=== PATIENT | male | born 1980 | race Caucasian/White ===

== ENCOUNTER 2021-05-18 17:52 | Inpatient (IN) | payer OTHER ==
[2021-05-18] MEDS ORDERED: LOPERAMIDE HCL 2 MG CAPSULE PO PRN (20:22)
[2021-05-18] MEDS ORDERED: ONDANSETRON *ODT* 4 MG TABLET SL PRN (20:22)
[2021-05-18] MEDS ORDERED: MAGNESIUM HYDROX 2400MG/30ML ORAL SUSPENSION 30 ML CUP PO PRN (20:22)
[2021-05-18] MEDS ORDERED: IBUPROFEN 400 MG TABLET (FP) PO PRN (20:22)
[2021-05-18] MEDS ORDERED: NICOTINE POLACRILEX 2 MG GUM BUC PRN (20:22)
[2021-05-18] MEDS ORDERED: MAG HYDROX/AL HYDROX/SIMETH 30 ML UNIT-DOSE CUP PO PRN (20:22)
[2021-05-18] MEDS ORDERED: BISMUTH SUBSALICYLATE 524 MG/30 ML PO PRN (20:22)
[2021-05-18] MEDS ORDERED: MENTHOL/PHENOL 1 EACH UD MM PRN (20:22)
[2021-05-18] MEDS ORDERED: MAGNESIUM CITRATE 300 ML BOTTLE PO PRN (20:22)
[2021-05-18] MEDS ORDERED: ACETAMINOPHEN 325 MG TABLET (FP) PO PRN ×2 (20:22)
[2021-05-18] MEDS ORDERED: methaDONE HCL 10 MG TABLET (FOR DETOX USE ONLY) PO ONE (20:28)
[2021-05-18] MEDS ORDERED: methaDONE HCL 10 MG TABLET (FOR DETOX USE ONLY) ONE (21:20)
[2021-05-18] MEDS ORDERED: hydrOXYzine PAMOATE 25 MG CAPSULE (FP) PO ONE ×2 (21:33→21:36)
[2021-05-18] MEDS ORDERED: MELATONIN 5 MG TABLETS PO SCH (22:00)
[2021-05-18 22:03] VITALS: BMI 28.8
[2021-05-19] MEDS ORDERED: METHOCARBAMOL 500 MG TABLET ONE (00:05)
[2021-05-19] MEDS: METHOCARBAMOL 500 MG TABLET PO PRN ×3 (00:08→17:54)
[2021-05-19] MEDS: THIAMINE HCL 100 MG TABLET (FP) PO SCH ×2 (00:09→21:30)
[2021-05-19] MEDS ORDERED: methaDONE HCL 10 MG TABLET (FOR DETOX USE ONLY) ONE (08:52)
[2021-05-19] MEDS: PRENATAL VITAMINS W/ FOLIC ACID TABLET (FP) PO SCH (09:34)
[2021-05-19] MEDS: NICOTINE 14 MG/24 HOURS TOPICAL PATCH TD SCH (09:34)
[2021-05-19] MEDS: cloNIDine HCL 0.1 MG TABLET PO PRN ×2 (09:34→17:53)
[2021-05-19 10:24] LABS: HEMATOCRIT 40.5 % (35.4-49); HEMOGLOBIN 13.6 GM/dL (11.7-16.9); MCH 30.5 pg (25.7-33.7); MCHC 33.7 g/dl (32.0-35.9); MEAN CELL VOLUME 90.7 fl (80-96); MEAN PLT VOLUME 7.7 fl (7.5-11.1); PLATELET COUNT 278 10^3/uL (134-434); RBC 4.46 M/mm3 (4.00-5.60); RDW 12.4 % (11.9-15.9); WHITE BLOOD COUNT 8.9 K/mm3 (4.0-10.0)
[2021-05-19 10:28] LABS: ALBUMIN 3.8 g/dl (3.4-5.0); CALCIUM 8.8 mg/dL (8.5-10.1)
[2021-05-19 10:29] LABS: CREATININE 1.2 mg/dL (0.55-1.3)
[2021-05-19 10:30] LABS: BILIRUBIN,TOTAL 0.6 mg/dL (0.2-1); TOT PROT 7.4 g/dl (6.4-8.2)
[2021-05-19] MEDS ORDERED: QUEtiapine FUMARATE 50 MG TABLET PO SCH (22:00)
[2021-05-20] MEDS: METHOCARBAMOL 500 MG TABLET PO PRN ×3 (01:11→18:00)
[2021-05-20 08:08] LABS: SARS-CoV-2 NAA Not Detected (Not Detected)
[2021-05-20 08:08] LABS: SARS-CoV-2 NAA Not Detected (Not Detected)
[2021-05-20] MEDS: NICOTINE 14 MG/24 HOURS TOPICAL PATCH TD SCH (09:06)
[2021-05-20] MEDS: PRENATAL VITAMINS W/ FOLIC ACID TABLET (FP) PO SCH (09:06)
[2021-05-20] MEDS ORDERED: methaDONE HCL 10 MG TABLET (FOR DETOX USE ONLY) PO ONE (10:00)
[2021-05-20] MEDS: cloNIDine HCL 0.1 MG TABLET PO PRN (12:04)
[2021-05-20] MEDS: THIAMINE HCL 100 MG TABLET (FP) PO SCH (21:06)
[2021-05-20] MEDS ORDERED: QUEtiapine FUMARATE 50 MG TABLET PO SCH ×2 (22:00)
[2021-05-20] MEDS ORDERED: MELATONIN 5 MG TABLETS PO SCH (22:00)
[2021-05-21] MEDS: METHOCARBAMOL 500 MG TABLET PO PRN (06:10)
[2021-05-21 09:20] VITALS: BP 113/77; PULSE 74; TEMP 96.9
[2021-05-21] MEDS ORDERED: methaDONE HCL 10 MG TABLET (FOR DETOX USE ONLY) ONE (10:06)
[2021-05-21] MEDS: PRENATAL VITAMINS W/ FOLIC ACID TABLET (FP) PO SCH (10:31)
[2021-05-21] MEDS: NICOTINE 14 MG/24 HOURS TOPICAL PATCH TD SCH (10:33)
[2021-05-21 14:09] LABS: HIV INTERPRETATION NEGATIVE (NEGATIVE)
[2021-05-22] MEDS ORDERED: methaDONE HCL 10 MG TABLET (FOR DETOX USE ONLY) PO ONE (10:00)
== END 2021-05-21 11:15 | disposition left against medical advice (07) | DRG 894 ==
LOC: YASAS 17:52 → Y3N 22:43
PROVIDERS: ADMIT Allergy & Immunology; ATTEND Allergy & Immunology
PROC: HZ2ZZZZ Detoxification Services for Substance Abuse Treatment (ICD-10-PCS; principal; 2021-05-18)
DX: F11.23 Opioid dependence with withdrawal (principal); F14.20 Cocaine dependence, uncomplicated; F19.282 Other psychoactive substance dependence with psychoactive substance-induced sleep disorder; F19.280 Other psychoactive substance dependence with psychoactive substance-induced anxiety disorder; F17.210 Nicotine dependence, cigarettes, uncomplicated; F19.24 Other psychoactive substance dependence with psychoactive substance-induced mood disorder; F20.9 Schizophrenia, unspecified; F41.9 Anxiety disorder, unspecified; F32.A Depression, unspecified; R76.11 Nonspecific reaction to tuberculin skin test without active tuberculosis; Z62.810 Personal history of physical and sexual abuse in childhood
CPT/HCPCS: 36415; 71046-TC-FY; 80053; 85027; 86780; 87389; 87811; C9803-CS; J0735; Q0162; U0003; U0005

== ENCOUNTER 2021-05-21 12:29 | Emergency (ER) | payer OTHER ==
[2021-05-21 12:50] VITALS: BP 94/68; PULSE 59; TEMP 97.6; BMI 28.1
[2021-05-21] MEDS ORDERED: ONDANSETRON *ODT* 4 MG TABLET SL ONE (13:00)
[2021-05-21] MEDS ORDERED: KETOROLAC TROMETHAMINE 30 MG/1 ML VIAL IM ONE (13:00)
[2021-05-21] MEDS ORDERED: ONDANSETRON *ODT* 4 MG TABLET ONE (13:43)
[2021-05-21] MEDS ORDERED: KETOROLAC TROMETHAMINE 30 MG/1 ML VIAL ONE (13:43)
[2021-05-21 14:05] LABS: BASO % 0.5 % (0-2.0); EOS % 0.3 % (0-4.5); HEMATOCRIT 42.4 % (35.4-49); HEMOGLOBIN 14.5 GM/dL (11.7-16.9); LYMPH % 19.1 % (8-40); MCH 30.4 pg (25.7-33.7); MCHC 34.3 g/dl (32.0-35.9); MEAN CELL VOLUME 88.7 fl (80-96); MEAN PLT VOLUME 7.3 fl (7.5-11.1); MONO % 6.7 % (3.8-10.2); NEUT % 73.4 % (42.8-82.8); PLATELET COUNT 268 10^3/uL (134-434); RBC 4.78 M/mm3 (4.00-5.60)
[2021-05-21 14:18] LABS: ALBUMIN 4.1 g/dl (3.4-5.0); BLOOD UREA NITROGEN 10.9 mg/dL (7-18); CALCIUM 9.6 mg/dL (8.5-10.1)
[2021-05-21 14:22] LABS: CREATININE 1.2 mg/dL (0.55-1.3)
[2021-05-21 14:23] LABS: BILIRUBIN,TOTAL 0.8 mg/dL (0.2-1); TOT PROT 8.2 g/dl (6.4-8.2)
== END 2021-05-21 15:41 | disposition left against medical advice (07) ==
LOC: JER 12:29
PROC: 3E023GC Introduction of Other Therapeutic Substance into Muscle, Percutaneous Approach (ICD-10-PCS; principal; 2021-05-21)
DX: F41.9 Anxiety disorder, unspecified (principal); F11.20 Opioid dependence, uncomplicated
CPT/HCPCS: 36415; 71046-TC-FY; 80053; 83735; 84484; 85025; 93005; 93010; 96372; 99285-25; Q0162

== ENCOUNTER 2024-02-15 13:45 | Inpatient (IN) | payer OTHER ==
[2024-02-15 15:04] VITALS: BMI 23.0
[2024-02-15] MEDS ORDERED: NALOXONE (NARCAN) HCL 4 MG/0.1 ML SPRAY NS PRN (15:20)
[2024-02-15] MEDS ORDERED: ACETAMINOPHEN 325 MG TABLET (FP) PO PRN (15:20)
[2024-02-15] MEDS ORDERED: BENZONATATE 200 MG CAPSULE PO PRN (15:20)
[2024-02-15] MEDS ORDERED: BISMUTH SUBSALICYLATE 524 MG/30 ML PO PRN (15:20)
[2024-02-15] MEDS ORDERED: MAGNESIUM HYDROX 2400MG/30ML ORAL SUSPENSION 30 ML CUP PO PRN (15:20)
[2024-02-15] MEDS ORDERED: hydrOXYzine PAMOATE 25 MG CAPSULE (FP) PO PRN (15:20)
[2024-02-15] MEDS ORDERED: IBUPROFEN 600 MG TABLET (FP) PO PRN (15:20)
[2024-02-15] MEDS ORDERED: ONDANSETRON *ODT* 4 MG TABLET SL PRN (15:20)
[2024-02-15] MEDS ORDERED: BENZOCAINE/MENTHOL (CHLORASEPTIC ) LOZENGE MM PRN (15:20)
[2024-02-15] MEDS ORDERED: IBUPROFEN 400 MG TABLET (FP) PO PRN (15:20)
[2024-02-15] MEDS ORDERED: NICOTINE POLACRILEX 4 MG LOZENGE BC PRN (15:20)
[2024-02-15] MEDS ORDERED: MAG HYDROX/AL HYDROX/SIMETH 30 ML UNIT-DOSE CUP PO PRN (15:20)
[2024-02-15] MEDS ORDERED: LOPERAMIDE HCL 2 MG CAPSULE PO PRN (15:20)
[2024-02-15] MEDS ORDERED: POLYETHYLENE GLYCOL (HEALTHYLAX) 3350 17 GM PACKET PO PRN (15:20)
[2024-02-15] MEDS ORDERED: guaiFENesin 600 MG TABLET.ER (FP) PO PRN (15:20)
[2024-02-15] MEDS ORDERED: PRENATAL VITAMINS W/ FOLIC ACID TABLET (FP) PO ONE (16:40)
[2024-02-15] MEDS: PRENATAL VITAMINS W/ FOLIC ACID TABLET (FP) PO SCH (16:47)
[2024-02-15] MEDS: methaDONE HCL 10 MG TABLET PO ONE (19:41)
[2024-02-15] MEDS ORDERED: methaDONE HCL 10 MG TABLET PO PRN (21:31)
[2024-02-15] MEDS: THIAMINE 100 MG TABLET PO SCH (22:40)
[2024-02-15] MEDS: MELATONIN 5 MG TABLETS PO SCH (22:40)
[2024-02-16] MEDS: methaDONE HCL 40 MG DISPERSABLE TABLET PO ONE (09:50)
[2024-02-16 09:53] LABS: HEMATOCRIT 38.6 % (35.4-49); HEMOGLOBIN 12.7 GM/dL (11.7-16.9); MCH 31.4 pg (25.7-33.7); MCHC 32.9 g/dl (32.0-35.9); MEAN CELL VOLUME 95.5 fl (80-96); MEAN PLT VOLUME 8.2 fl (7.5-11.1); PLATELET COUNT 212 10^3/uL (134-434); RBC 4.04 M/mm3 (4.00-5.60); RDW 12.7 % (11.9-15.9); WHITE BLOOD COUNT 7.8 K/mm3 (4.0-10.0)
[2024-02-16 10:18] LABS: POTASSIUM 3.8 mmol/L (3.5-5.1)
[2024-02-16 10:24] LABS: ALBUMIN 3.1 g/dl (3.4-5.0); CALCIUM 8.7 mg/dL (8.5-10.1)
[2024-02-16 10:27] LABS: CREATININE 0.8 mg/dL (0.55-1.3)
[2024-02-16 10:28] LABS: BILIRUBIN,TOTAL 0.1 mg/dL (0.2-1); TOT PROT 6.5 g/dl (6.4-8.2)
[2024-02-16] MEDS: QUEtiapine FUMARATE 100 MG TABLET (FP) PO SCH (21:23)
[2024-02-17] MEDS: cloNIDine HCL 0.1 MG TABLET PO PRN (06:17)
[2024-02-17] MEDS: methaDONE 40 MG, methaDONE 10 MG PO ONE (09:47)
[2024-02-18] MEDS: DICYCLOMINE HCL 10 MG CAPSULE PO PRN (07:11)
[2024-02-18] MEDS: METHOCARBAMOL 500 MG TABLET PO PRN (17:58)
[2024-02-18] MEDS ORDERED: cloNIDine HCL 0.1 MG TABLET PO PRN (18:03)
[2024-02-18] MEDS: hydrOXYzine PAMOATE 25 MG CAPSULE (FP) PO PRN (21:22)
[2024-02-19] MEDS: methaDONE 40 MG, methaDONE 20 MG PO ONE (10:03)
[2024-02-19 17:10] VITALS: RESP 16
[2024-02-20] MEDS: NALOXONE (NYS OPIOID OVERDOSE PROGRAM) 4 MG/0.1 ML SPRAY NS SCH (08:45)
[2024-02-20] MEDS ORDERED: methaDONE HCL 10 MG TABLET PO ONE (12:21)
[2024-02-20 13:03] VITALS: BP 106/65; PULSE 78; TEMP 97.7
[2024-02-20] MEDS: methaDONE 40 MG, methaDONE 30 MG PO ONE (13:03)
== END 2024-02-20 14:01 | disposition other institution (70) | DRG 897 ==
LOC: SUATTDRO 13:45 → YASAS 13:45 → Y3N 16:45
PROVIDERS: ADMIT Allergy & Immunology; ATTEND Allergy & Immunology
PROC: HZ2ZZZZ Detoxification Services for Substance Abuse Treatment (ICD-10-PCS; principal; 2024-02-15)
DX: F11.23 Opioid dependence with withdrawal (principal); F14.20 Cocaine dependence, uncomplicated; F13.20 Sedative, hypnotic or anxiolytic dependence, uncomplicated; F19.282 Other psychoactive substance dependence with psychoactive substance-induced sleep disorder; F17.210 Nicotine dependence, cigarettes, uncomplicated; F20.9 Schizophrenia, unspecified; F19.24 Other psychoactive substance dependence with psychoactive substance-induced mood disorder; F32.A Depression, unspecified; F41.9 Anxiety disorder, unspecified
CPT/HCPCS: 36415; 71046-TC-FY; 80053; 85027; 86780; 93005; 93010

== ENCOUNTER 2024-02-20 14:09 | Inpatient (IN) | payer OTHER ==
[2024-02-20] MEDS ORDERED: BENZOCAINE/MENTHOL (CHLORASEPTIC ) LOZENGE MM PRN (15:27)
[2024-02-20] MEDS ORDERED: LOPERAMIDE HCL 2 MG CAPSULE PO PRN (15:27)
[2024-02-20] MEDS ORDERED: MAGNESIUM HYDROX 2400MG/30ML ORAL SUSPENSION 30 ML CUP PO PRN (15:27)
[2024-02-20] MEDS ORDERED: BENZONATATE 200 MG CAPSULE PO PRN (15:27)
[2024-02-20] MEDS ORDERED: ACETAMINOPHEN 325 MG TABLET (FP) PO PRN (15:27)
[2024-02-20] MEDS ORDERED: IBUPROFEN 600 MG TABLET (FP) PO PRN (15:27)
[2024-02-20] MEDS ORDERED: NALOXONE (NARCAN) HCL 4 MG/0.1 ML SPRAY NS PRN (15:27)
[2024-02-20] MEDS ORDERED: IBUPROFEN 400 MG TABLET (FP) PO PRN (15:27)
[2024-02-20] MEDS ORDERED: POLYETHYLENE GLYCOL (HEALTHYLAX) 3350 17 GM PACKET PO PRN (15:27)
[2024-02-20] MEDS ORDERED: guaiFENesin 600 MG TABLET.ER (FP) PO PRN (15:27)
[2024-02-20] MEDS ORDERED: NALOXONE HCL 0.4 MG/ML VIAL IVPUSH PRN (15:27)
[2024-02-20] MEDS: METHOCARBAMOL 500 MG TABLET PO PRN (19:03)
[2024-02-20] MEDS: hydrOXYzine PAMOATE 25 MG CAPSULE (FP) PO PRN (19:03)
[2024-02-20] MEDS: THIAMINE 100 MG TABLET PO SCH (22:01)
[2024-02-20] MEDS: MELATONIN 5 MG TABLETS PO SCH (22:01)
[2024-02-20] MEDS: QUEtiapine FUMARATE 100 MG TABLET (FP) PO SCH (22:01)
[2024-02-21] MEDS ORDERED: methaDONE HCL 10 MG TABLET PO SCH (06:00)
[2024-02-21] MEDS: methaDONE 40 MG, methaDONE 30 MG PO SCH (08:43)
[2024-02-21] MEDS: PRENATAL VITAMINS W/ FOLIC ACID TABLET (FP) PO SCH (09:11)
[2024-02-22 06:40] VITALS: RESP 16
[2024-02-22] MEDS: MAG HYDROX/AL HYDROX/SIMETH 30 ML UNIT-DOSE CUP PO PRN (10:18)
[2024-02-22] MEDS ORDERED: ONDANSETRON *ODT* 4 MG TABLET SL PRN (10:51)
[2024-02-23 06:14] VITALS: BP 103/72; PULSE 63; TEMP 97.7
[2024-02-23] MEDS: NALOXONE (NYS OPIOID OVERDOSE PROGRAM) 4 MG/0.1 ML SPRAY NS SCH (13:37)
== END 2024-02-23 13:41 | disposition left against medical advice (07) | DRG 894 ==
LOC: YASAS 14:09 → Y3NR 14:10 → Y3W 02-21 10:48
PROVIDERS: ADMIT Allergy & Immunology; ATTEND Psychiatry & Neurology Pain Medicine
PROC: HZ42ZZZ Group Counseling for Substance Abuse Treatment, Cognitive-Behavioral (ICD-10-PCS; principal; 2024-02-20)
DX: F11.20 Opioid dependence, uncomplicated (principal); F14.20 Cocaine dependence, uncomplicated; F17.210 Nicotine dependence, cigarettes, uncomplicated; F20.9 Schizophrenia, unspecified; F41.9 Anxiety disorder, unspecified; F32.A Depression, unspecified; Z88.8 Allergy status to other drugs, medicaments and biological substances
CPT/HCPCS: 36415; 86803